=== PATIENT | female | born 1945 | race Caucasian/White ===

== ENCOUNTER 2017-10-25 16:41 | Emergency (ER) | payer MEDICARE ==
[~2017-10-25] VITALS: Ht 175.3 cm; Wt 106.0 kg
[~2017-10-25 16:41] MED LIST: FLEXERIL PO; ULTRAM50 M1 PO
[2017-10-25] MEDS ORDERED: ANASTROZOLE1 MG PO (17:28)
[2017-10-25] MEDS ORDERED: ASPIRIN 81 LOW81 MG PO (17:28)
[2017-10-25 19:22] VITALS: BP 157/80
== END 2017-10-25 19:23 | disposition home or self-care (01) ==
LOC: ED 16:41
DX: R22.32 Localized swelling, mass and lump, left upper limb (principal); M79.602 Pain in left arm

== ENCOUNTER 2020-11-17 11:45 | Observation (INO) | payer MEDICARE ==
[~2020-11-17] VITALS: Ht 170.2 cm; Wt 105.0 kg
[~2020-11-17 11:45] MED LIST changes: +ANASTROZOLE1 MG PO; +ASPIRIN 81 LOW81 MG PO
--- NOTE | 2020-11-17 11:45 | NUR ---
PATIENT TO ROOM VIA WHEELCHAIR AND PHYSICIAN NOTIFIED OF PATIENT STATUS
--- NOTE | 2020-11-17 11:53 | NUR ---
STROKE ALERT CALLED, TO CT SCAN VIA STRETCHER.
[2020-11-17 12:16] LABS: HEMOGLOBIN 12.6 g/dl (12.0-16.0); IMMATURE GRANULOCYTES 0.3 % (0.0-5.0); MEAN CELL VOLUME 92.6 fL CALC (80.0-100.0); MEAN CORPUSCULAR HGB 29.9 pG CALC (26.0-32.0); MEAN CORPUSCULAR HGB CONC 32.3 g/dL CAL (32.0-36.0); NEUT# 5.7 thou/uL (2.00-7.15); RED BLOOD COUNT 4.21 mill/uL (4.20-5.60); RED CELL DISTRI WIDTH 14.3 % (11.5-15.5)
[2020-11-17 12:18] LABS: GFR 54 ML/MIN (>=60 (CALC)); GFR FOR AFR.AMER. > 60 ML/MIN (>=60 (CALC))
[2020-11-17 12:40] LABS: INTERNATIONAL NORMALIZED RATIO 0.9 RATIO (0.7-1.3)
[2020-11-17 12:53] LABS: MYOGLOBIN 63 ng/mL (0 - 62)
--- NOTE | 2020-11-17 13:45 | NUR ---
PT AMBULATED TO BATHROOM WITH STEADY GAIT.
[2020-11-17 14:06] LABS: URINE BILIRUBIN - DIPSTICK NEGATIVE (NEGATIVE); URINE BLOOD DIPSTICK NEGATIVE (NEGATIVE); URINE COLOR YELLOW; URINE GLUCOSE - DIPSTICK NEGATIVE (NEGATIVE); URINE KETONE NEGATIVE (NEGATIVE); URINE LEUK ESTERASE NEGATIVE (NEGATIVE); URINE NITRITE - DIPSTICK NEGATIVE (Negative); URINE PH 7.5 (4.5-8.0); URINE PROTEIN - DIPSTICK TRACE mg/dL (NEG-TRACE); URINE UROBILINOGEN - DIPSTICK 0.2 E.U./dL (0.2)
--- NOTE | 2020-11-17 14:45 | NUR ---
AMBULATED TO BATHROOM WITH STEADY GAIT.
[2020-11-17 14:50] LABS: ALKALINE PHOSPHATASE 77 u/l (38-126); ANION GAP 10 (6-22 (CALC)); BILIRUBIN, TOTAL 0.6 mg/dL (0.0-1.4); BUN 23 mg/dL (8-23); BUN/CREATININE RATIO 25 (12-20 (CALC)); CARBON DIOXIDE 30 mmol/l (22-30); CHLORIDE 100 mmol/l (95-108); CREATININE 0.9 mg/dL (0.5-1.0); GFR > 60 ML/MIN (>=60 (CALC)); GFR FOR AFR.AMER. > 60 ML/MIN (>=60 (CALC)); POTASSIUM 4.5 mmol/l (3.5-5.1); SGOT/AST 24 u/l (9-36); SODIUM 136 mmol/l (137-146); TOTAL PROTEIN 6.8 g/dL (6.3-8.2)
--- NOTE | 2020-11-17 15:30 | NUR ---
MD AT BEDSIDE TO DISCUSS RESULTS AND POC, AT BEDSIDE.
[2020-11-17] MEDS ORDERED: CRESTOR5 MG PO (16:00)
--- NOTE | 2020-11-17 16:00 | NUR ---
COVID SWAB COLLECTED, ISOLATION PRECAUTIONS INITIATED.
[2020-11-17] MEDS ORDERED: SPIRONOLACT100 MG PO (16:01)
[2020-11-17] MEDS ORDERED: OCUVITE LUTEIN1 CAP PO (16:02)
[2020-11-17] MEDS ORDERED: MAGNESIUM500 M1 PO (16:03)
[2020-11-17] MEDS ORDERED: CALCIUM600 M1 PO (16:07)
[2020-11-17] MEDS ORDERED: ELIQUIS5 MG PO (16:09)
[2020-11-17] MEDS ORDERED: Levaquin PO (16:11)
[2020-11-17] MEDS ORDERED: CLINDAMYCIN300 M1 PO (16:11)
[2020-11-17] MEDS ORDERED: PREDNISONE10 MG PO (16:12)
--- NOTE | 2020-11-17 16:50 | NUR ---
REPORT CALLED TO [facility].
--- NOTE | 2020-11-17 17:11 | NUR ---
TO MED SURG VIA STRETCHER, TELE MONITOR IN PLACE.
[2020-11-17 17:42] VITALS: BP 188/68
--- NOTE | 2020-11-17 18:13 | NUR ---
PATIENT ARRIVED FROM THE ER VIA WHEEL CHAIR. INTO THE BED WITH MIN ASST. PATIENT IS AXOX3. DENIES PAIN AT THIS TIME. ORIENTED TO THE ROOM. THE BED , THE CALL SYSTEM AND THE TV AND THE TELEPHONE. ALLERGY BAND PLACED ON THE PATIENT. PT GIVEN EVENING MEAL . CALL LIGHT IN REACH, EDUCATED PT NOT TOGET UP WITH OUT CALLING FOR THE NURSE. ALL SAFTY MEASURES IN PLACE. WILL CONTINUE TO MONIOTR THE PATIENT.
[2020-11-17 19:00] VITALS: BP 163/79
[2020-11-17 23:52] VITALS: BP 155/78
[2020-11-18 03:29] VITALS: BP 122/65
--- NOTE | 2020-11-18 05:11 | NUR ---
PATIENT IS ALERT AND ORIENTED X4. ABLE TO MAKE NEEDS KNOWN. RESPIRATIONS EASY ON RA. ON TELEMETRY SINUS LAUREL MOST OF NIGHT BUT HAS INTERMITENT PERIODS OF AFIB THAT HAS BEEN OCCURING SINCE ADMISSION. NEURO CHECKS WNL. VAD S/L. STEADY ON FEET. DENIES PAIN. BED IN LOW POSITION. CALL LIGHT WITHIN REACH.
[2020-11-18 05:55] LABS: HEMATOCRIT 38.6 % (37.0-47.0); HEMOGLOBIN 12.6 g/dl (12.0-16.0); IMMATURE GRANULOCYTES 0.3 % (0.0-5.0); MEAN CELL VOLUME 92.1 fL CALC (80.0-100.0); MEAN CORPUSCULAR HGB 30.1 pG CALC (26.0-32.0); MEAN CORPUSCULAR HGB CONC 32.6 g/dL CAL (32.0-36.0); NEUT# 3.1 thou/uL (2.00-7.15); RED BLOOD COUNT 4.19 mill/uL (4.20-5.60); RED CELL DISTRI WIDTH 14.3 % (11.5-15.5)
[2020-11-18 06:01] LABS: ALBUMIN 3.3 g/dL (3.2-5.0); ALKALINE PHOSPHATASE 58 u/l (38-126); ANION GAP 9 (6-22 (CALC)); BILIRUBIN, TOTAL 0.7 mg/dL (0.0-1.4); BUN 20 mg/dL (8-23); BUN/CREATININE RATIO 24 (12-20 (CALC)); CALCULATED LDLCHOLESTEROL 76 mg/dL (62-129 (CALC)); CARBON DIOXIDE 27 mmol/l (22-30); CHLORIDE 104 mmol/l (95-108); CHOLESTEROL HDL RATIO 2.1 (<4.4 (CALC)); CREATININE 0.8 mg/dL (0.5-1.0); GFR > 60 ML/MIN (>=60 (CALC)); GFR FOR AFR.AMER. > 60 ML/MIN (>=60 (CALC)); HDL CHOLESTEROL 94 mg/dL (>=40); MAGNESIUM 1.9 mg/dL (1.6-2.3); POTASSIUM 4.8 mmol/l (3.5-5.1); SGOT/AST 22 u/l (9-36); SODIUM 135 mmol/l (137-146); TOTAL CHOLESTEROL 193 mg/dl (0-199); TOTAL PROTEIN 5.8 g/dL (6.3-8.2); TOTAL TRIGLYCERIDES 114 mg/dl (30-149); VLDL CHOLESTROL 23 mg/dl (0-48 (CALC))
[2020-11-18 08:30] VITALS: BP 172/80
--- NOTE | 2020-11-18 08:45 | NUR ---
PT SITTING UP IN THE BEDSIDE CAHI AXOX3. C/O HEADACH, MED PER ORDER. NOTED NEURO INTACT. NO RESP DISTRESS NOTED. TELE IN PLACE. ALL QUESTIONS ANSWERED. CALL LIGHT IN REACH. WILL CONTINUE TO MONIOTR THE PATIENT.
--- NOTE | 2020-11-18 09:30 | NUR ---
PT STATES HER HEADACH IS NEARLY GONE.
[2020-11-18 11:12] VITALS: BP 150/71
--- NOTE | 2020-11-18 12:30 | NUR ---
PT SITTING ON THE EDGE OF THE BED HAVING LUNCH, NO DISTRESS NOTED AT THIS TIME. WILL CONTINUE TO MONIOTR THE PATIENT.
[2020-11-18 15:37] VITALS: BP 135/86
--- NOTE | 2020-11-18 16:38 | NUR ---
PT GIVEN B/P MEDICATION, EDUCATED ON SE AND WHAT EXPECT FROM THE MEDICATION. RESTING COMOFRTABLE IN THE BED SIDE CALL LIGHT IN REACH.O DISTRESS NOTED AT THIS TIME. WILL CONTINUE TO MONIOTR THE PATIENT.
[2020-11-18 19:01] VITALS: BP 169/84
[2020-11-18 23:15] VITALS: BP 142/70
[2020-11-19 03:36] VITALS: BP 138/78
[2020-11-19 05:32] LABS: HEMATOCRIT 37.2 % (37.0-47.0); HEMOGLOBIN 11.9 g/dl (12.0-16.0); IMMATURE GRANULOCYTES 0.3 % (0.0-5.0); MEAN CORPUSCULAR HGB 29.8 pG CALC (26.0-32.0); NEUT# 4.13 thou/uL (2.00-7.15); RED CELL DISTRI WIDTH 14.4 % (11.5-15.5)
[2020-11-19 06:10] LABS: ANION GAP 9 (6-22 (CALC)); BUN 22 mg/dL (8-23); BUN/CREATININE RATIO 24 (12-20 (CALC)); CARBON DIOXIDE 25 mmol/l (22-30); CHLORIDE 105 mmol/l (95-108); CREATININE 0.9 mg/dL (0.5-1.0); GFR > 60 ML/MIN (>=60 (CALC)); GFR FOR AFR.AMER. > 60 ML/MIN (>=60 (CALC)); POTASSIUM 4.5 mmol/l (3.5-5.1); SODIUM 135 mmol/l (137-146)
--- NOTE | 2020-11-19 06:36 | NUR ---
PATIENT IS ALERT AND ORIENTED X4. ABLE TO MAKE NEEDS KNOWN. RESPIRATIONS EASY ON ROOM AIR. NO COMPLAINTS OF PAIN VERBALIZED ALL SHIFT. NEURO CHECKS HAVE BEEN NEGATIVE. BED IN LOW POSITION. CALL LIGHT WITHIN REACH.
[2020-11-19 07:38] VITALS: BP 146/72
--- NOTE | 2020-11-19 07:38 | NUR ---
PATIENT RESTING IN BED WITH EYES OPEN ALERT AND ORIENTED DENIES ANY PAIN AT THIS TIME. PATIENT NEURO CHECK DONE AND NO SIGNS OF ANY DEFICITS NOTED. PATIENT CARE MANAGER DONE SEE INTERVENTIONS. PATIENT STATES "I FEEL MUCH BETTER TODAY AND WANT TO GO HOME". 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 PATIENT SIDERAILS ARE UP X2 CALL LIGHT WITHIN REACH AND ALL PERSONAL ITEMS ARE WITHIN REACH WELL. PATIENT DENEIS ANY OTHER NEEDS AT THIS TIME.
[2020-11-19 10:33] VITALS: BP 136/71
[2020-11-19] MEDS ORDERED: COZAAR25 MG PO (10:59)
--- NOTE | 2020-11-19 12:51 | NUR ---
Discharge instructions given. Patient verbalizes understanding of same. Discharged in condition via to with . All belongings sent with pt.
== END 2020-11-19 12:43 | disposition home or self-care (01) ==
LOC: ED 11:45 → ED-I 13:25 → ED 13:25 → ED-I 15:10 → ED 15:34 → MS2 15:35
PROVIDERS: Family Medicine; Nurse Practitioner; ADMIT Internal Medicine; ATTEND Internal Medicine
DX: R07.9 Chest pain, unspecified (principal); G45.9 Transient cerebral ischemic attack, unspecified; I31.3 Pericardial effusion (noninflammatory); I48.0 Paroxysmal atrial fibrillation; R00.1 Bradycardia, unspecified; I10 Essential (primary) hypertension; Z85.3 Personal history of malignant neoplasm of breast; Z20.822 Contact with and (suspected) exposure to COVID-19
CPT/HCPCS: Q9967